=== PATIENT | male | born 1955 | race Caucasian/White ===

== ENCOUNTER 2018-03-01 12:59 | Day surgery (SDC) | payer MEDICARE, OTHER ==
[2018-03-01] MEDS ORDERED: ONDANSETRON 4 MG INJ (14:05)
[2018-03-01] MEDS ORDERED: LIDOCAINE 2% (SDV) 5 ML INJ (15:37)
[2018-03-01] MEDS ORDERED: MIDAZOLAM 1 MG/ML 2 ML INJ (15:37)
[2018-03-01] MEDS ORDERED: ETOMIDATE 20 MG INJ (15:38)
[2018-03-01] MEDS ORDERED: FENTAnyl 50 MCG/ML VIAL (15:38)
[2018-03-01] MEDS: IPRATROPIUM (NEB) 0.5 MG/2.5 ML AMP HHN (17:03)
== END 2018-03-01 17:24 | disposition home or self-care (01) ==
LOC: GIL 12:59
DX: K94.23 Gastrostomy malfunction (principal); Y84.8 Other medical procedures as the cause of abnormal reaction of the patient, or of later complication, without mention of misadventure at the time of the procedure; Y82.8 Other medical devices associated with adverse incidents
CPT/HCPCS: 43246; 94664

== ENCOUNTER 2018-09-13 12:53 | Inpatient (IN) | payer MEDICARE, OTHER ==
[2018-09-13 13:37] LABS: ADD MAN DIFF? NO
[2018-09-13] MEDS: HYDROCODONE/APAP (5/325) TAB PO ×2 (13:51→21:33)
[2018-09-13] MEDS: SOD CHLORIDE 0.9% 500 ML IV (13:51)
[2018-09-13 13:58] LABS: WHITE BLOOD COUNT 15.3 10^3/ul (4.8-10.8)
[2018-09-13 13:58] LABS: BASOPHIL # 0.1 10^3/ul (0.0-0.1); BASOPHILS % 0.3 % (0.0-2.0); EOSINOPHILS % 0.2 % (0.0-7.0); HEMATOCRIT 37.2 % (42.0-52.0); HEMOGLOBIN 11.5 g/dl (14.0-18.0); LYMPHOCYTES # 1.3 10^3/ul (0.8-2.9); LYMPHOCYTES % 8.6 % (15.0-51.0); MEAN CORPUSCULAR HEMOGLOBIN 30.4 pg (29.0-33.0); MEAN CORPUSCULAR HGB CONC 30.9 g/dl (32.0-37.0); MEAN CORPUSCULAR VOLUME 98.4 fl (82.0-101.0); MEAN PLATELET VOLUME 10.3 fl (7.4-10.4); MONOCYTE # 0.9 10^3/ul (0.3-0.9); MONOCYTES % 5.7 % (0.0-11.0); NEUTROPHILS % 84.9 % (39.0-77.0); PLATELET COUNT 456 10^3/UL (140-415); RED BLOOD COUNT 3.78 10^6/ul (4.70-6.10); RED CELL DISTRIBUTION WIDTH 15.9 % (11.5-14.5)
[2018-09-13 14:26] LABS: ALANINE AMINOTRANSFERASE 38 IU/L (13-69); ALBUMIN 4.4 g/dl (3.3-4.9); ALBUMIN/GLOBULIN RATIO 0.95; ALKALINE PHOSPHATASE 153 IU/L (42-121); ANION GAP 11 (5-13); ASPARTATE AMINO TRANSFERASE 31 IU/L (15-46); BILIRUBIN,INDIRECT 0.4 mg/dl (0-1.1); BILIRUBIN,TOTAL 0.4 mg/dl (0.2-1.3); BLOOD UREA NITROGEN 29 mg/dl (7-20); CALCIUM 9.8 mg/dl (8.4-10.2); CARBON DIOXIDE 28 mmol/L (21-31); CHLORIDE 102 mmol/L (97-110); CREATININE 0.79 mg/dl (0.61-1.24); Estimated GFR > 60 mL/min (>60); GLUCOSE 142 mg/dl (70-220); POTASSIUM 4.5 mmol/L (3.5-5.1); SODIUM 141 mmol/L (135-144)
[2018-09-13] MEDS ORDERED: AZITHROMYCIN 500 MG TAB PO (14:30)
[2018-09-13] MEDS ORDERED: CEFTRIAXONE 1 GM INJ IM (14:30)
[2018-09-13 14:37] LABS: TROPONIN-I < 0.012 ng/ml (0.000-0.120)
[2018-09-13] MEDS: CEFTRIAXONE 1 GM/50 ML (PMX) 50 ML IVPB (14:43)
[2018-09-13] MEDS: metroNIDAZOLE 500 MG/NS (PMX) 100 ML IVPB (15:10)
[2018-09-13] MEDS ORDERED: ACETAMINOPHEN 325 MG TAB PO (15:30)
[2018-09-13] MEDS ORDERED: ONDANSETRON 4 MG INJ IV (15:30)
[2018-09-13 15:57] LABS: ADD UMIC YES; UR ASCORBIC ACID 40 mg/dL (NEGATIVE); UR BACTERIA FEW /HPF (NONE SEEN); UR BILIRUBIN (Dip) NEGATIVE (NEGATIVE); UR BLOOD (Dip) NEGATIVE (NEGATIVE); UR CLARITY SLIGHTLY CLOUDY (CLEAR); UR COLOR YELLOW (YELLOW); UR GLUCOSE (Dip) NEGATIVE (NEGATIVE); UR KETONES (Dip) NEGATIVE (NEGATIVE); UR LEUKOCYTE ESTERASE (Dip) TRACE Leu/ul (NEGATIVE); UR NITRITE (Dip) NEGATIVE (NEGATIVE); UR RBC 36 /HPF (0-5); UR SPECIFIC GRAVITY (Dip) 1.027 (1.003-1.030); UR TOTAL PROTEIN (Dip) NEGATIVE (NEGATIVE); UR UROBILINOGEN (Dip) NEGATIVE (NEGATIVE); UR WBC 17 /HPF (0-5)
[2018-09-13] MEDS: AZITHROMYCIN 500MG/NS (PMX) 250 ML IV (16:57)
[2018-09-13] MEDS: SOD CHLORIDE 0.9% 1,000 ML IV (16:58)
[2018-09-13] MEDS: morphine 4 MG/ML VIAL IV (16:58)
[2018-09-13] MEDS ORDERED: ACETAMINOPHEN 650 MG SUPP PR (19:00)
[2018-09-13] MEDS ORDERED: NACL 0.9% 3 ML SYG IV (19:00)
[2018-09-13] MEDS ORDERED: ALBUTEROL/IPRATROPIUM (NEB) 3 ML AMP HHN (19:30)
[2018-09-13] MEDS: SOD CHLORIDE 0.45% 1,000 ML IV (19:37)
[2018-09-13] MEDS: ONDANSETRON 4 MG INJ IV (21:31)
[2018-09-13] MEDS: GABAPENTIN 100 MG CAP PO (21:32)
[2018-09-13] MEDS: METHYLPREDNISOLONE 125 MG INJ IV (21:32)
[2018-09-13] MEDS: FAMOTIDINE 20 MG TAB PO (21:32)
[2018-09-13] MEDS: MONTELUKAST 10 MG TAB PO (21:32)
[2018-09-13] MEDS: BACLOFEN 10 MG TAB PO (21:33)
[2018-09-13] MEDS: ALBUTEROL/IPRATROPIUM (NEB) 3 ML AMP HHN (21:38)
[2018-09-13] MEDS: LORAZEPAM 1 MG TAB PO (23:08)
[2018-09-14] MEDS: ALBUTEROL/IPRATROPIUM (NEB) 3 ML AMP HHN ×4 (01:51→19:59)
[2018-09-14] MEDS: HYDROCODONE/APAP (5/325) TAB PO ×4 (03:00→19:41)
[2018-09-14 05:59] LABS: ADD MAN DIFF? NO
[2018-09-14 06:10] LABS: WHITE BLOOD COUNT 14.8 10^3/ul (4.8-10.8)
[2018-09-14 06:10] LABS: BASOPHILS % 0.1 % (0.0-2.0); HEMATOCRIT 29.8 % (42.0-52.0); HEMOGLOBIN 9.6 g/dl (14.0-18.0); LYMPHOCYTES # 1.3 10^3/ul (0.8-2.9); MEAN CORPUSCULAR HEMOGLOBIN 31.7 pg (29.0-33.0); MEAN CORPUSCULAR HGB CONC 32.2 g/dl (32.0-37.0); MEAN CORPUSCULAR VOLUME 98.3 fl (82.0-101.0); MEAN PLATELET VOLUME 10.2 fl (7.4-10.4); MONOCYTE # 0.1 10^3/ul (0.3-0.9); MONOCYTES % 0.4 % (0.0-11.0); NEUTROPHIL # 13.3 10^3/ul (1.6-7.5); PLATELET COUNT 365 10^3/UL (140-415); POSITIVE DIFF @See below; RED BLOOD COUNT 3.03 10^6/ul (4.70-6.10); RED CELL DISTRIBUTION WIDTH 15.9 % (11.5-14.5)
[2018-09-14 07:27] LABS: ALANINE AMINOTRANSFERASE 28 IU/L (13-69); ALBUMIN 3.7 g/dl (3.3-4.9); ALBUMIN/GLOBULIN RATIO 0.86; ALKALINE PHOSPHATASE 112 IU/L (42-121); ANION GAP 9 (5-13); ASPARTATE AMINO TRANSFERASE 25 IU/L (15-46); BILIRUBIN,INDIRECT 0.2 mg/dl (0-1.1); BILIRUBIN,TOTAL 0.2 mg/dl (0.2-1.3); BLOOD UREA NITROGEN 25 mg/dl (7-20); CALCIUM 9.1 mg/dl (8.4-10.2); CARBON DIOXIDE 26 mmol/L (21-31); CHLORIDE 108 mmol/L (97-110); CREATININE 0.72 mg/dl (0.61-1.24); Estimated GFR > 60 mL/min (>60); GLUCOSE 170 mg/dl (70-220); POTASSIUM 4.3 mmol/L (3.5-5.1); SODIUM 143 mmol/L (135-144)
[2018-09-14] MEDS: SOD CHLORIDE 0.45% 1,000 ML IV ×2 (08:43→23:00)
[2018-09-14] MEDS: GABAPENTIN 100 MG CAP PO ×2 (08:43→21:17)
[2018-09-14] MEDS: BACLOFEN 10 MG TAB PO ×2 (08:43→21:18)
[2018-09-14] MEDS: METHYLPREDNISOLONE 125 MG INJ IV ×2 (08:43→21:17)
[2018-09-14] MEDS: FAMOTIDINE 20 MG TAB PO ×2 (08:43→21:18)
[2018-09-14] MEDS: ESCITALOPRAM 10 MG TAB PO (08:43)
[2018-09-14 09:27] LABS: ANISOCYTOSIS 1+ (0-0); BAND NEUTROPHILS #M 4.8 10^3/ul (0.0-0.6); BAND NEUTROPHILS % (M) 33 % (0-4); GIANT THROMBO% (M) 1 % (0-0); LYMPHOCYTES % (M) 7 % (15-51); MICROCYTOSIS 1+ (0-0); MONOCYTE #M 0.2 10^3/ul (0.3-0.9); MONOCYTES % (M) 2 % (0-11); PLATELET ESTIMATE NORMAL; POIKILOCYTOSIS 3+ (0-0); POLYCHROMASIA 3+ (0-0); PROMYELOCYTES #M 0.1 10^3/ul (0-0); PROMYELOCYTES % (M) 1 % (0-0); SEG NEUT #M 9.1 10^3/ul (1.6-7.5); SEGMENTED NEUTROPHILS (M) % 57 % (39-77); SMUDGE%M 18 % (0-0)
[2018-09-14] MEDS: LORAZEPAM 1 MG TAB PO ×2 (10:34→23:33)
[2018-09-14] MEDS: CEFTRIAXONE 1 GM/50 ML (PMX) 50 ML IVPB (14:44)
[2018-09-14] MEDS: AZITHROMYCIN 500MG/NS (PMX) 250 ML IVPB (15:15)
[2018-09-14] MEDS: MONTELUKAST 10 MG TAB PO (21:18)
[2018-09-15] MEDS: ALBUTEROL/IPRATROPIUM (NEB) 3 ML AMP HHN ×4 (02:41→21:12)
[2018-09-15] MEDS: HYDROCODONE/APAP (5/325) TAB PO ×3 (06:00→18:39)
[2018-09-15 06:02] LABS: ADD MAN DIFF? NO
[2018-09-15 06:04] LABS: BASOPHILS % 0.1 % (0.0-2.0); HEMATOCRIT 28.3 % (42.0-52.0); HEMOGLOBIN 9.1 g/dl (14.0-18.0); LYMPHOCYTES # 0.9 10^3/ul (0.8-2.9); LYMPHOCYTES % 7.6 % (15.0-51.0); MEAN CORPUSCULAR HEMOGLOBIN 31.3 pg (29.0-33.0); MEAN CORPUSCULAR HGB CONC 32.2 g/dl (32.0-37.0); MEAN CORPUSCULAR VOLUME 97.3 fl (82.0-101.0); MEAN PLATELET VOLUME 10.8 fl (7.4-10.4); MONOCYTE # 0.2 10^3/ul (0.3-0.9); MONOCYTES % 1.8 % (0.0-11.0); NEUTROPHIL # 10.5 10^3/ul (1.6-7.5); NEUTROPHILS % 89.8 % (39.0-77.0); PLATELET COUNT 358 10^3/UL (140-415); RED BLOOD COUNT 2.91 10^6/ul (4.70-6.10); RED CELL DISTRIBUTION WIDTH 16.1 % (11.5-14.5)
[2018-09-15 06:04] LABS: WHITE BLOOD COUNT 11.7 10^3/ul (4.8-10.8)
[2018-09-15 07:12] LABS: ANION GAP 11 (5-13); BLOOD UREA NITROGEN 28 mg/dl (7-20); CALCIUM 9.2 mg/dl (8.4-10.2); CARBON DIOXIDE 23 mmol/L (21-31); CHLORIDE 106 mmol/L (97-110); CREATININE 0.68 mg/dl (0.61-1.24); Estimated GFR > 60 mL/min (>60); GLUCOSE 198 mg/dl (70-220); MAGNESIUM 1.9 mg/dl (1.7-2.5); POTASSIUM 3.8 mmol/L (3.5-5.1); SODIUM 140 mmol/L (135-144)
[2018-09-15] MEDS: METHYLPREDNISOLONE 125 MG INJ IV ×2 (08:36→20:39)
[2018-09-15] MEDS: SOD CHLORIDE 0.45% 1,000 ML IV ×2 (08:37→20:45)
[2018-09-15] MEDS: GABAPENTIN 100 MG CAP PO ×2 (08:37→20:40)
[2018-09-15] MEDS: FAMOTIDINE 20 MG TAB PO ×2 (08:37→20:40)
[2018-09-15] MEDS: BACLOFEN 10 MG TAB PO ×2 (08:37→20:40)
[2018-09-15] MEDS: ESCITALOPRAM 10 MG TAB PO (08:37)
[2018-09-15] MEDS: ENOXAPARIN 30 MG/0.3 ML SYG SC (08:41)
[2018-09-15] MEDS: LORAZEPAM 1 MG TAB PO ×2 (09:30→23:07)
[2018-09-15] MEDS: FENTAnyl PATCH 50 MCG/HR TRANSDERM (09:35)
[2018-09-15] MEDS: CEFTRIAXONE 1 GM/50 ML (PMX) 50 ML IVPB (12:33)
[2018-09-15] MEDS ORDERED: DOCUSATE SODIUM 10 MG/ML (10ML CUP) GTB (13:00)
[2018-09-15] MEDS: AZITHROMYCIN 500MG/NS (PMX) 250 ML IVPB (14:16)
[2018-09-15] MEDS: MONTELUKAST 10 MG TAB PO (20:40)
[2018-09-16] MEDS: ALBUTEROL/IPRATROPIUM (NEB) 3 ML AMP HHN ×4 (01:34→20:09)
[2018-09-16] MEDS: HYDROCODONE/APAP (5/325) TAB PO ×3 (04:12→18:28)
[2018-09-16] MEDS: GABAPENTIN 100 MG CAP PO ×2 (08:33→20:30)
[2018-09-16] MEDS: ESCITALOPRAM 10 MG TAB PO (08:33)
[2018-09-16] MEDS: BACLOFEN 10 MG TAB PO ×2 (08:33→20:29)
[2018-09-16] MEDS: METHYLPREDNISOLONE 125 MG INJ IV ×2 (08:34→20:29)
[2018-09-16] MEDS: FAMOTIDINE 20 MG TAB PO ×2 (08:34→20:30)
[2018-09-16] MEDS: ENOXAPARIN 30 MG/0.3 ML SYG SC (08:36)
[2018-09-16] MEDS: LORAZEPAM 1 MG TAB PO ×2 (10:07→23:38)
[2018-09-16] MEDS: SOD CHLORIDE 0.45% 1,000 ML IV (10:12)
[2018-09-16] MEDS: CEFTRIAXONE 1 GM/50 ML (PMX) 50 ML IVPB (12:32)
[2018-09-16] MEDS: AZITHROMYCIN 500MG/NS (PMX) 250 ML IVPB (14:00)
[2018-09-16] MEDS: MONTELUKAST 10 MG TAB PO (20:30)
[2018-09-16] MEDS: ONDANSETRON 4 MG INJ IV (22:53)
[2018-09-17] MEDS: ALBUTEROL/IPRATROPIUM (NEB) 3 ML AMP HHN ×4 (01:07→21:45)
[2018-09-17] MEDS: HYDROCODONE/APAP (5/325) TAB PO ×3 (03:13→18:41)
[2018-09-17 06:40] LABS: ADD MAN DIFF? NO
[2018-09-17 06:42] LABS: HEMATOCRIT 32.2 % (42.0-52.0); HEMOGLOBIN 10.2 g/dl (14.0-18.0); LYMPHOCYTES # 1.2 10^3/ul (0.8-2.9); LYMPHOCYTES % 15.7 % (15.0-51.0); MEAN CORPUSCULAR HEMOGLOBIN 30.2 pg (29.0-33.0); MEAN CORPUSCULAR HGB CONC 31.7 g/dl (32.0-37.0); MEAN CORPUSCULAR VOLUME 95.3 fl (82.0-101.0); MEAN PLATELET VOLUME 10.8 fl (7.4-10.4); MONOCYTE # 0.4 10^3/ul (0.3-0.9); MONOCYTES % 4.4 % (0.0-11.0); NEUTROPHIL # 6.3 10^3/ul (1.6-7.5); NEUTROPHILS % 79.3 % (39.0-77.0); PLATELET COUNT 392 10^3/UL (140-415); RED BLOOD COUNT 3.38 10^6/ul (4.70-6.10); RED CELL DISTRIBUTION WIDTH 16.2 % (11.5-14.5)
[2018-09-17 06:42] LABS: WHITE BLOOD COUNT 7.9 10^3/ul (4.8-10.8)
[2018-09-17 07:10] LABS: ANION GAP 9 (5-13); BLOOD UREA NITROGEN 24 mg/dl (7-20); CALCIUM 9.2 mg/dl (8.4-10.2); CARBON DIOXIDE 27 mmol/L (21-31); CHLORIDE 105 mmol/L (97-110); CREATININE 0.55 mg/dl (0.61-1.24); Estimated GFR > 60 mL/min (>60); GLUCOSE 196 mg/dl (70-220); POTASSIUM 4.2 mmol/L (3.5-5.1); SODIUM 141 mmol/L (135-144)
[2018-09-17] MEDS: ESCITALOPRAM 10 MG TAB PO (08:30)
[2018-09-17] MEDS: BACLOFEN 10 MG TAB PO ×2 (08:30→21:15)
[2018-09-17] MEDS: METHYLPREDNISOLONE 125 MG INJ IV ×2 (08:31→21:15)
[2018-09-17] MEDS: GABAPENTIN 100 MG CAP PO ×2 (08:31→21:15)
[2018-09-17] MEDS: FAMOTIDINE 20 MG TAB PO ×2 (08:31→21:15)
[2018-09-17] MEDS: ENOXAPARIN 30 MG/0.3 ML SYG SC (08:45)
[2018-09-17] MEDS: LORAZEPAM 1 MG TAB PO ×2 (12:46→23:22)
[2018-09-17] MEDS: CEFTRIAXONE 1 GM/50 ML (PMX) 50 ML IVPB (12:46)
[2018-09-17] MEDS: AZITHROMYCIN 500MG/NS (PMX) 250 ML IVPB (16:14)
[2018-09-17] MEDS: MONTELUKAST 10 MG TAB PO (21:15)
[2018-09-17] MEDS: ACETAMINOPHEN 325 MG TAB PO (23:36)
[2018-09-18] MEDS: ALBUTEROL/IPRATROPIUM (NEB) 3 ML AMP HHN ×3 (02:54→14:06)
[2018-09-18] MEDS: HYDROCODONE/APAP (5/325) TAB PO ×3 (03:14→12:42)
[2018-09-18] MEDS: ESCITALOPRAM 10 MG TAB PO (08:27)
[2018-09-18] MEDS: METHYLPREDNISOLONE 125 MG INJ IV (08:27)
[2018-09-18] MEDS: BACLOFEN 10 MG TAB PO (08:27)
[2018-09-18] MEDS: GABAPENTIN 100 MG CAP PO (08:27)
[2018-09-18] MEDS: FAMOTIDINE 20 MG TAB PO (08:27)
[2018-09-18] MEDS: ENOXAPARIN 30 MG/0.3 ML SYG SC (08:28)
[2018-09-18] MEDS: FENTAnyl PATCH 50 MCG/HR TRANSDERM (11:50)
[2018-09-18] MEDS: CEFTRIAXONE 1 GM/50 ML (PMX) 50 ML IVPB (13:57)
[2018-09-18] MEDS: AZITHROMYCIN 500MG/NS (PMX) 250 ML IVPB (15:41)
== END 2018-09-18 17:16 | disposition home or self-care (01) | DRG 871 ==
LOC: E/R 12:53 → TEL 15:30
DX: A41.9 Sepsis, unspecified organism (principal); L89.153 Pressure ulcer of sacral region, stage 3; J18.9 Pneumonia, unspecified organism; J96.01 Acute respiratory failure with hypoxia; E43 Unspecified severe protein-calorie malnutrition; J44.1 Chronic obstructive pulmonary disease with (acute) exacerbation; J44.0 Chronic obstructive pulmonary disease with (acute) lower respiratory infection; Z68.1 Body mass index [BMI] 19.9 or less, adult; G12.21 Amyotrophic lateral sclerosis; R13.10 Dysphagia, unspecified; Z93.1 Gastrostomy status; D64.9 Anemia, unspecified; M54.5 Low back pain; Z74.01 Bed confinement status; Z87.440 Personal history of urinary (tract) infections; Z87.891 Personal history of nicotine dependence
CPT/HCPCS: 71045; 74176; 80048; 80053; 81001; 83735; 84484; 85025; 87040-91; 94640; 94664; 96374; 96375; 97161; 97164; 99285-25